=== PATIENT | female | born 1940 | race Caucasian/White ===

== ENCOUNTER 2018-01-11 12:04 | Observation (INO) ==
[2018-01-11] MEDS ORDERED: Sod Chloride 0.9% Inj 1,000 ML IV.SIG ONE (12:29)
--- NOTE | 2018-01-11 12:40 | ED ---
HPI General Chief complaint: Weakness Stated complaint: Weakness/vomiting/SOB this am Time Seen by Provider: 01/11/18 12:29 History of Present Illness HPI narrative: Patient is a 77-year-old female presents emergency department with nausea and vomiting nonbilious nonbloody started this morning. Patient states that she thinks she has food poisoning. No chest pain no shortness of breath no abdominal pain no diarrhea. She did states she had some constipation a few days ago. Notably tachycardic in triage she was roomed in the emergency department. No history of heart or lung disease no history of long periods of stasis no history of blood clots in the past. No other sick contacts. Symptoms mild, started this morning, associated signs and symptoms in context as above. Related Data Home Medications Medication Instructions Recorded Confirmed glyburide PO DAILY 01/11/18 levothyroxine [Synthroid] 88 mcg PO DAILY 01/11/18 01/11/18 metformin 500 mg PO DAILY 01/11/18 01/11/18 Allergies Allergy/AdvReac Type Severity Reaction Status Date / Time No Known Allergies Allergy Verified 01/11/18 12:15 Review of Systems Except as stated in HPI: all other systems reviewed are negative [facility] Medical History Medical History Diabetes (Acute) Hypertension (Acute) Hypothyroidism (Acute) Surgical History Surgical History No history of previous surgery (Acute) Social History Social History Substance History: No History of Abuse Second Hand Smoke Exposure: No Smoking Status: Former smoker Tobacco Type: Cigarettes How Often Do You Have a Drink Containing Alcohol: Never Recent Travel in [facility] within the Last 8 Weeks: No Recent Out of Country Travel within the Last 8 Weeks: No Exam Narrative Exam Narrative: GENERAL: Well-developed well-nourished in no obvious distress, appears well. SKIN: Focused skin assessment warm/dry. HEAD: Atraumatic. Normocephalic. EYES: Pupils equal and round. No scleral icterus. No injection or drainage. ENT: No nasal bleeding or discharge. Mucous membranes pink and moist. NECK: Trachea midline. No JVD. CARDIOVASCULAR: Regular rhythm with tachycardia 2+ bilateral pulses in all 4 extremities per. No murmur appreciated. RESPIRATORY: No accessory muscle use. No wheezes rales or rhonchi, good air entry, clear to auscultation. Perhaps minimally tachypneic. Breath sounds equal bilaterally. GASTROINTESTINAL: Abdomen soft, non-tender, nondistended. Hepatic and splenic margins not palpable. MUSCULOSKELETAL: No obvious deformities. No clubbing. No cyanosis. No edema. NEUROLOGICAL: Awake and alert. No obvious cranial nerve deficits. Motor grossly within normal limits. Normal speech. PSYCHIATRIC: Appropriate mood and affect; insight and judgment normal. Course Initial Documented Vital Signs Temperature 98.4 F 01/11/18 12:16 Pulse Rate 140 H 01/11/18 12:16 Respiratory Rate 16 01/11/18 12:16 Blood Pressure 116/66 01/11/18 12:16 Pulse Oximetry 94 L 01/11/18 12:16 Last Documented Vital Signs Temperature 98.4 F 01/11/18 12:16 Pulse Rate 110 H 01/11/18 14:26 Respiratory Rate 20 01/11/18 12:25 Blood Pressure 117/52 L 01/11/18 14:26 Pulse Oximetry 92 L 01/11/18 14:26 Medical Decision Making MDM Narrative Medical decision making narrative: Patient room to the emergency department, she appears well and her history would suggest that the dehydration may be the cause of her tachycardia but would not explain her hypoxia. Patient having desaturations to the mid 80s on room air, she was placed on nasal cannula continues to have some desaturations to the mid 80s but otherwise is holding her saturation above 94%. ABG confirms the patient's PaO2 was a little low at 70 and this was obtained on 2 L nasal cannula. This could represent an AA gradient of Near 100, PaO2 to FiO2 ratio is approximately 250. Certainly PE would lead the differential the patient does not report any historical risk factors for it she went for CT PE protocol and did not show any pneumonias, small lung nodule but no PE. There were no heart murmurs. Patient is not in overt congestive heart failure. She does have a significant bandemia but no source of infection is yet been identified., Where the patient also has a history of hypothyroidism is on hypothyroid replacement and thyroid panel was added. Urinalysis was also added. Patient has not been febrile and therefore I cannot justify the addition of antibiotics at this point but may require them in the near future. Despite these laboratory abnormalities the patient appears well. She was given a liter of normal saline given the history suggestive of some dehydration and heart rate did decline some to mid 110's. Certainly I think the patient needs additional workup was discussed with [facility] team and I recommended admission consideration for echocardiogram and pulmonary consult. They are agreeable for admission and so is the patient. Differential Diagnosis Differential Diagnosis: Gastritis, gastroenteritis, dehydration, Sirs, PE, pneumonia Lab Data Result diagrams: 01/11/18 12:40 01/11/18 13:00 Lab Results 01/11/18 01/11/18 01/11/18 Range/Units 12:25 12:40 12:40 CBC w Diff Slide review pending WBC 5.4 (4.0-11.0) th/mm3 RBC 5.16 (4.00-5.30) mil/mm3 Hgb 15.7 H (11.6-15.3) gm/dL Hct 44.5 (35.0-46.0) % MCV 86.2 (80.0-100.0) fL MCH 30.4 (27.0-34.0) pg MCHC 35.3 (32.0-36.0) % RDW 13.3 (11.6-17.2) % Plt Count 210 (150-450) th/mm3 MPV 7.5 (7.0-11.0) fL WBC Differential Manual diff final Seg Neuts % (Manual) 59 (16-70) % Band Neuts % (Manual) 30 H (0-6) % Lymphocytes % (Manual) 5 L (9-44) % Eosinophils % (Manual) 4 (0-4) % Metamyelocytes % (Man) 1 (0-1) % Myelocytes % (Man) 1 H (0-0) % Abs Neuts (Manual) 4.9 (1.8-7.7) th/mm3 Differential Comment . Toxic Granulation 2+ H (None) Platelet Estimate Normal (Normal) Platelet Morphology Normal (Normal) PT 10.2 (9.8-11.6) sec INR 1.0 Ratio APTT 21.0 L (24.3-30.1) sec Puncture Site Patient Temperature O2 Saturation (90-100) % ABG pH (7.380-7.420) ABG pCO2 (38-42) mmHg ABG pO2 (61-120) mmHg ABG HCO3 (22-26) mmol/L ABG O2 Content (12.0-20.0) Vol % ABG Base Excess (-2-2) mmol/L ABG Methemoglobin (0-2) % Kip Test Hemoglobin (12.0-16.0) G/DL Carboxyhemoglobin (0-4) % O2 Delivery Device Liter Flow L/M Inspired O2 % Critical Value Sodium (136-145) meq/L Potassium (3.5-5.1) meq/L Chloride (98-107) meq/L Carbon Dioxide (21.0-32.0) meq/L Anion Gap (5-15) meq/L BUN (7-18) mg/dL Creatinine (0.50-1.00) mg/dL Estimated GFR (>89) mL/min POC Glucose 145 H (68-110) mg/dl Random Glucose (74-106) mg/dL Calcium (8.5-10.1) mg/dL Total Bilirubin (0.2-1.0) mg/dL AST (15-37) U/L ALT (10-53) U/L Alkaline Phosphatase (45-117) U/L Troponin I (0.02-0.05) ng/mL Total Protein (6.4-8.2) g/dL Albumin (3.4-5.0) g/dL 01/11/18 01/11/18 Range/Units 13:00 13:23 CBC w Diff WBC (4.0-11.0) th/mm3 RBC (4.00-5.30) mil/mm3 Hgb (11.6-15.3) gm/dL Hct (35.0-46.0) % MCV (80.0-100.0) fL MCH (27.0-34.0) pg MCHC (32.0-36.0) % RDW (11.6-17.2) % Plt Count (150-450) th/mm3 MPV (7.0-11.0) fL WBC Differential Seg Neuts % (Manual) (16-70) % Band Neuts % (Manual) (0-6) % Lymphocytes % (Manual) (9-44) % Eosinophils % (Manual) (0-4) % Metamyelocytes % (Man) (0-1) % Myelocytes % (Man) (0-0) % Abs Neuts (Manual) (1.8-7.7) th/mm3 Differential Comment Toxic Granulation (None) Platelet Estimate (Normal) Platelet Morphology (Normal) PT (9.8-11.6) sec INR Ratio APTT (24.3-30.1) sec Puncture Site Left radial Patient Temperature 98.6 O2 Saturation 92 (90-100) % ABG pH 7.45 H (7.380-7.420) ABG pCO2 29 L (38-42) mmHg ABG pO2 70 (61-120) mmHg ABG HCO3 20 L (22-26) mmol/L ABG O2 Content 18.6 (12.0-20.0) Vol % ABG Base Excess -3.6 L (-2-2) mmol/L ABG Methemoglobin 1.3 (0-2) % Kip Test Present Hemoglobin 14.3 (12.0-16.0) G/DL Carboxyhemoglobin 1.4 (0-4) % O2 Delivery Device Nasal cannula Liter Flow 2.00 L/M Inspired O2 21 % Critical Value No Sodium 138 (136-145) meq/L Potassium 3.5 (3.5-5.1) meq/L Chloride 106 (98-107) meq/L Carbon Dioxide 22.7 (21.0-32.0) meq/L Anion Gap 9 (5-15) meq/L BUN 16 (7-18) mg/dL Creatinine 1.10 H (0.50-1.00) mg/dL Estimated GFR 48 L (>89) mL/min POC Glucose (68-110) mg/dl Random Glucose 129 H (74-106) mg/dL Calcium 8.4 L (8.5-10.1) mg/dL Total Bilirubin 0.7 (0.2-1.0) mg/dL AST 38 H (15-37) U/L ALT 43 (10-53) U/L Alkaline Phosphatase 137 H (45-117) U/L Troponin I Less than 0.02 L (0.02-0.05) ng/mL Total Protein 6.9 (6.4-8.2) g/dL Albumin 3.7 (3.4-5.0) g/dL Imaging Data Radiologist's impression: Chest X-Ray 01/11/18 12:29 CONCLUSION: Mild infrahilar right medial base atelectasis or consolidation. Chest CTA 01/11/18 13:12 CONCLUSION: 1. No evidence of pulmonary embolus. 2. 7 mm pulmonary nodular density abutting the major fissure on the right. May represent an intrapulmonary lymph node. Using Fleischner Society guidelines, recommend follow-up noncontrast CT in 6 months. Discharge Plan Discharge Disposition Patient Disposition: 30 Still Patient Discharge Condition Condition: Fair Discharge Details Diagnosis: Respiratory failure, SIRS (systemic inflammatory response syndrome), Bandemia Physicians Team ED Provider: Francisco Adams Primary Care Provider: Brayan Marrufo V Rxs /Orders / Referrals /Forms Prescriptions: No Action metformin 500 mg Tablet 500 mg PO DAILY RF: 0 levothyroxine [Synthroid] 88 mcg Tablet 88 mcg PO DAILY RF: 0 glyburide PO DAILY RF: 0 Status ED Status: With Doctor
[2018-01-11 12:50] LABS: Hematocrit 44.5 % (35.0-46.0); Hemoglobin 15.7 gm/dL (11.6-15.3); Mean Corpuscular HGB Conc 35.3 % (32.0-36.0); Mean Corpuscular Hemoglobin 30.4 pg (27.0-34.0); Mean Corpuscular Volume 86.2 fL (80.0-100.0); Mean Platelet Volume 7.5 fL (7.0-11.0); Platelet Count 210 th/mm3 (150-450); Red Blood Count 5.16 mil/mm3 (4.00-5.30); Red Cell Distribution Width 13.3 % (11.6-17.2); White Blood Count 5.4 th/mm3 (4.0-11.0)
--- NOTE | 2018-01-11 12:59 | XR ---
EXAM DATE: 01/11/2018 12:47 PM EDT AGE/SEX: 77 years / Female INDICATIONS: Short of breath CLINICAL DATA: This is the patient's initial encounter. Patient reports that signs and symptoms have been present for 1 day and indicates a pain score of 3/10. MEDICAL/SURGICAL HISTORY: None. None. COMPARISON: No prior exams available for comparison. FINDINGS: There is mild increased density at the medial right base. The left lung is clear. The heart size is n ormal. CONCLUSION: Mild infrahilar right medial base atelectasis or consolidation. Electronically signed by: Ryan Giraldo MD 01/11/2018 12:58 PM EDT
[2018-01-11 13:05] LABS: Prothrombin Time 10.2 sec (9.8-11.6)
[2018-01-11 13:13] LABS: Eosinophils 4 % (0-4); Lymphocytes 5 % (9-44); Metamyelocytes 1 % (0-1); Myelocytes 1 % (0-0)
[2018-01-11 13:14] LABS: Platelet Estimate Normal (Normal); Platelet Morphology Normal (Normal); Toxic Granulation 2+
[2018-01-11 13:21] LABS: Chloride 106 meq/L (98-107); Potassium 3.5 meq/L (3.5-5.1); Sodium 138 meq/L (136-145)
[2018-01-11 13:24] LABS: Calcium 8.4 mg/dL (8.5-10.1)
[2018-01-11 13:25] LABS: Albumin 3.7 g/dL (3.4-5.0); Anion Gap 9 meq/L (5-15); Blood Urea Nitrogen 16 mg/dL (7-18); Carbon Dioxide 22.7 meq/L (21.0-32.0); Glucose,Random 129 mg/dL (74-106)
[2018-01-11 13:25] LABS: ABG Base Excess -3.6 mmol/L (-2-2); ABG PCO2 29 mmHg (38-42); ABG PO2 70 mmHg (61-120)
[2018-01-11 13:28] LABS: Alanine Aminotransferase 43 U/L (10-53); Aspartate Aminotransferase 38 U/L (15-37); Glomerular Filtration Rate 48 mL/min (>89)
[2018-01-11 13:29] LABS: Total Protein 6.9 g/dL (6.4-8.2)
[2018-01-11 13:31] LABS: Alkaline Phosphatase 137 U/L (45-117)
--- NOTE | 2018-01-11 14:15 | CT ---
EXAM DATE: 01/11/2018 2:01 PM EDT AGE/SEX: 77 years / Female INDICATIONS: Short of breath. Weakness. Tachycardic. Nausea and vomiting. CLINICAL DATA: This is the patient's initial encounter. Patient reports that signs and symptoms have been present for 1 day and indicates a pain score of 0/10. MEDICAL/SURGICAL HISTORY: Hypertension. None. RADIATION DOSE: 17.92 CTDI (mGy) COMPARISON: No prior exams available for comparison. TECHNIQUE: Volumetric scanning was performed using a multi-row detector CT scanner during bolus infu tyler of 75 ml Omnipaque 350 (iohexol) nonionic water-soluble contrast as a single exam dose. The dipesh a was post processed with a variety of visualization algorithms including full volume maximum intensi ty projection and sliding thin slab reformation. Using automated exposure control and adjustment of the mA and/or kV according to patient size, radiation dose was kept as low as reasonably achievable t o obtain optimal diagnostic quality images. DICOM format image data is available electronically for review and comparison. FINDINGS: Pulmonary Arteries: No filling defects are seen in the pulmonary arteries out to the subsegmental ve ssels. The left and right pulmonary arteries are normal in diameter. Lun mm pulmonary round nodular density in the right lower lobe along the major fissure on image #41. Mild bilateral dependent atelectasis. Effusion: None. Mediastinum: Diffuse aortic calcification. Aortic diameter within normal limits. No enlarged mediast inal lymph nodes. Coronary artery calcification is noted. Other: The axilla is unremarkable. CONCLUSION: 1. No evidence of pulmonary embolus. 2. 7 mm pulmonary nodular density abutting the major fissure on the right. May represent an intrapul monary lymph node. Using Fleischner Society guidelines, recommend follow-up noncontrast CT in 6 month s. Electronically signed by: Nomi Hitchcock MD 01/11/2018 2:14 PM EDT
[2018-01-11] MEDS ORDERED: Acetaminophen 325 MG Tablet PO PRN (14:39)
[2018-01-11] MEDS ORDERED: Temazepam 15 MG Capsule PO PRN (14:39)
[2018-01-11] MEDS ORDERED: Bisacodyl 10 MG Supp RECTAL PRN (14:39)
[2018-01-11] MEDS ORDERED: Dextrose 50% in Water 50 ML Vial IV.PUSH PRN (14:44)
[2018-01-11 14:53] LABS: Bilirubin,Urine Negative (Negative); Clarity,Urine Clear (Clear); Color,Urine Yellow (Yellw/Straw); Glucose,Urine (UA) Negative (Negative); Leukocyte Esterase,Urine Negative (Negative); Nitrite,Urine Negative (Negative); PH,Urine 5.5 (5.0-8.5); Specific Gravity,Urine Less/Equal 1.005 (1.002-1.035); Urobilinogen,Urine 0.2 mg/dL (Less than 2)
[2018-01-11 14:59] LABS: Bacteria,Urine Occasional /hpf; RBC,Urine 0-3 /hpf (0-3); Squamous Epithelial Cell,Urine 0-5 /hpf (0-5); WBC,Urine 0-5 /hpf (0-5)
[2018-01-11 15:09] LABS: Thyroid Stimulating Hormone 2.81 uIU/mL (0.358-3.740)
[2018-01-11] MEDS: Sod Chloride 0.9% Inj 1,000 ML IV.CONT SCH (15:11)
--- NOTE | 2018-01-11 15:12 | P.HPIM ---
[facility]: Brayan Marrufo MD Chief Complaint: Nausea, vomiting, shortness of breath History of Present Illness: 77-year-old female with medical history significant for hypothyroidism and diabetes presented to the hospital with nausea nonbilious vomiting that started this morning. Workup in the emergency room found the patient to be tachycardic in the 140s and hypoxemic. There is no history of cardiopulmonary disease. CTA of the chest was negative for pulmonary embolism. The patient was given IV fluid. By the time of my evaluation, she reports feeling much better. However she remains tachycardic and is still requiring 2 L of oxygen on nasal cannula. - Diagnosis (1) Hypoxemia (2) Elevated lactic acid level (3) Bandemia (4) Nausea & vomiting (5) Hypothyroidism (6) Sinus tachycardia (7) Diabetes Review of Systems All other systems reviewed negative except as stated in HPI Cardiovascular: Denies chest pain, Denies chest pain at rest Gastrointestinal: Reports nausea, Reports vomiting PMFSH - History History Provided By: Patient - Medical History Medical History: Medical History (Last Reviewed 01/11/18 @ 15:36 by Owen Rivers MD) Diabetes Hypertension Hypothyroidism - Surgical History Surgical History: Surgical History (Last Reviewed 01/11/18 @ 15:36 by Owen Rivers MD) No history of previous surgery - Family History Family History: Family History (Last Updated 01/11/18 @ 15:36 by Owen Rivers MD) Other Family history non-contributory - Tobacco History Second Hand Smoke Exposure: No Tobacco Use In Past 30 Days: No Smoking Status: Former smoker Tobacco Type: Cigarettes - Alcohol History How Often Do You Have a Drink Containing Alcohol: Never - Substance Use History Substance History: No History of Abuse - Travel History Recent Travel in the [place] Within the Last 8 Weeks: No Recent Travel Out of the Country Within the Last 8 Weeks: No - Immunization History Tetanus Immunization: Unsure Medications and Allergies Active Medications: Active Medications Acetaminophen (Tylenol) 650 mg PO Q4H PRN PRN Reason: Temp > 100.4 Al Hydroxide/Mg Hydroxide (Milk Of Magnesia Liq) 30 ml PO Q12H PRN PRN Reason: Mild Constipation Bisacodyl (Dulcolax Supp) 10 mg RECTAL DAILY PRN PRN Reason: SEVERE CONSITIPATION Dextrose (D50w Vial) 50 ml IV.PUSH UNSCH PRN PRN Reason: PER HYPOGLYCEMIA PROTOCOL Glucagon (Glucagon Inj) 1 mg OTHER PRN PRN PRN Reason: for Hypoglycemia Protocol Sodium Chloride (Ns Inj) 1,000 mls @ 100 mls/hr IV.CONT .Q10H [place] Last Admin: 01/11/18 15:11 Dose: 100 mls/hr Insulin Aspart (Novolog Insulin Correctional Sugar Inj) 0 unit SQ ACHS [place]; Protocol Lactulose (Lactulose Liq) 30 ml PO DAILY PRN PRN Reason: SEVERE CONSITIPATION Levothyroxine Sodium (Synthroid) 88 mcg PO DAILY@0600 [place] Ondansetron HCl (Zofran Inj) 4 mg IV.PUSH Q6H PRN PRN Reason: NAUSEA OR VOMITING Senna/Docusate Sodium (Ruby-Colace) 1 tab PO BID [facility] Sennosides (Senokot) 17.2 mg PO Q12H PRN PRN Reason: Moderate Constipation Sodium Chloride (Ns Flush) 2 ml IV.FLUSH UNSCH PRN PRN Reason: FLUSH AFTER USING IV ACCESS Temazepam (Restoril) 15 mg PO HS PRN PRN Reason: INSOMNIA Allergies Allergy/AdvReac Type Severity Reaction Status Date / Time No Known Allergies Allergy Verified 01/11/18 12:15 Home Medications Medication Instructions Recorded Confirmed Type glyburide PO DAILY 01/11/18 History levothyroxine [Synthroid] 88 mcg PO DAILY 01/11/18 01/11/18 History metformin 500 mg PO DAILY 01/11/18 01/11/18 History Exam Vital signs: Vital Signs 01/11/18 12:16 01/11/18 12:25 01/11/18 12:35 Temperature 98.4 F Pulse Rate 140 H 144 H Respiratory Rate 16 20 Blood Pressure 116/66 137/66 Pulse Oximetry 94 L 88 L 88 L 01/11/18 12:51 01/11/18 12:53 01/11/18 14:26 Temperature Pulse Rate 133 H 110 H Respiratory Rate Blood Pressure 103/57 L 117/52 L Pulse Oximetry 92 L 88 L 92 L Intake & Output 01/10/18 01/11/18 01/11/18 18:59 06:59 18:59 Weight 73.6 kg Narrative: CONSTITUTIONAL/GENERAL: This is an adequately nourished patient, in no apparent distress. Vital signs reviewed SKIN: No jaundice, rashes, or concerning lesions. Not diaphoretic. HEAD: Atraumatic. Normocephalic. EYES: Pupils equal and round and reactive. Extra ocular motions are intact. No scleral icterus. No injection or drainage. ENT: Hearing grossly normal. Nose without drainage. Throat without visible erythema, exudates, masses, or lesions. NECK: Trachea midline. Neck is supple, non-tender. No palpable thyroid enlargement or nodularity. CARDIOVASCULAR: Tachycardic rate around 110 and regular rhythm without murmurs, gallops, or rubs. No JVD. Peripheral pulses 2+ and symmetric. RESPIRATORY/CHEST: Symmetric, unlabored respirations. Breath sounds equal and clear to auscultation bilaterally. No wheezes, crackles, rales, or rhonchi. GASTROINTESTINAL: Abdomen soft, non-tender, non-distended. No hepato- splenomegaly, or palpable masses. No guarding. Bowel sounds present. MUSCULOSKELETAL: Extremities without clubbing, cyanosis, or edema. No joint tenderness or effusion noted. No calf tenderness. No mottling or clubbing. NEUROLOGICAL: Awake and alert. Motor and sensory grossly within normal limits. Follows commands. Move all extremities spontaneously. No focal deficits. PSYCHIATRIC: No obvious mood problems. No apparent hallucinations or other psychotic thought process. Results - Labs CBC & Chem 7: 01/11/18 12:40 01/11/18 13:00 Labs: Short CBC 01/11/18 Range/Units 12:40 WBC 5.4 (4.0-11.0) th/mm3 Hgb 15.7 H (11.6-15.3) gm/dL Hct 44.5 (35.0-46.0) % Plt Count 210 (150-450) th/mm3 BMP 01/11/18 13:00 Sodium 138 Potassium 3.5 Chloride 106 Carbon Dioxide 22.7 BUN 16 Creatinine 1.10 H Calcium 8.4 L Cardiac Enzymes 01/11/18 Range/Units 13:00 Troponin I Less than 0.02 L (0.02-0.05) ng/mL Liver Function 01/11/18 Range/Units 13:00 Total Bilirubin 0.7 (0.2-1.0) mg/dL AST 38 H (15-37) U/L ALT 43 (10-53) U/L Alkaline Phosphatase 137 H (45-117) U/L Albumin 3.7 (3.4-5.0) g/dL Urine 01/11/18 Range/Units 14:45 Urine Color Yellow (Yellw/Straw) Urine Clarity Clear (Clear) Urine pH 5.5 (5.0-8.5) Ur Specific [place] Less/equal 1.005 (1.002-1.035) Urine Protein Negative (Neg-Trace) mg/dL Urine Glucose (UA) Negative (Negative) mg/dL - Imaging Impressions Chest X-Ray 01/11/18 12:29 CONCLUSION: Mild infrahilar right medial base atelectasis or consolidation. Chest CTA 01/11/18 13:12 CONCLUSION: 1. No evidence of pulmonary embolus. 2. 7 mm pulmonary nodular density abutting the major fissure on the right. May represent an intrapulmonary lymph node. Using Fleischner Society guidelines, recommend follow-up noncontrast CT in 6 months. Caprini VTE Risk Assessment Caprini VTE Risk Assessment: Moderate/High Risk (score >= 2) Caprini Risk Assessment Model: Point Value = 1 Point Value = 2 Point Value = 3 Point Value = 5 Age 41-60 Minor surgery BMI > 25 kg/m2 Swollen legs Varicose veins or History of unexplained or recurrent spontaneous Oral contraceptives or hormone replacement Sepsis (< 1 month) Serious lung disease, including pneumonia (< 1 month) Abnormal pulmonary function Acute myocardial infarction Congestive heart failure (< 1 month) History of inflammatory bowel disease Medical patient at bed rest Age 61-74 Arthroscopic surgery Major open surgery (> 45 min) Laparoscopic surgery (> 45 min) Malignancy Confined to bed (> 72 hours) Immobilizing plaster cast Central venous access Age >= 75 History of VTE Family history of VTE Factor V Leiden Prothrombin [id number] Lupus anticoagulant Anticardiolipin antibodies Elevated serum homocysteine Heparin-induced thrombocytopenia Other congenital or acquired thrombophilia Stroke (< 1 month) Elective arthroplasty Hip, pelvis, or leg fracture Acute spinal cord injury (< 1 month) Prophylaxis Regimen: Total Risk Factor Score Risk Level Prophylaxis Regimen 0-1 Low Early ambulation 2 Moderate Order ONE of the following: *Sequential Compression Device (SCD) *Heparin 5000 units SQ BID 3-4 Higher Order ONE of the following medications: *Heparin 5000 units SQ TID *Enoxaparin/Lovenox 40 mg SQ daily (WT < 150 kg, CrCl > 30 mL/min) *Enoxaparin/Lovenox 30 mg SQ daily (WT < 150 kg, CrCl > 10-29 mL/min) *Enoxaparin/Lovenox 30 mg SQ BID (WT < 150 kg, CrCl > 30 mL/min) AND/OR *Sequential Compression Device (SCD) 5 or more Highest Order ONE of the following medications: *Heparin 5000 units SQ TID (Preferred with Epidurals) *Enoxaparin/Lovenox 40 mg SQ daily (WT < 150 kg, CrCl > 30 mL/min) *Enoxaparin/Lovenox 30 mg SQ daily (WT < 150 kg, CrCl > 10-29 mL/min) *Enoxaparin/Lovenox 30 mg SQ BID (WT < 150 kg, CrCl > 30 mL/min) AND *Sequential Compression Device (SCD) Assessment and Plan - Assessment (1) Hypoxemia Code(s): R09.02 - Hypoxemia Status: Acute Plan: Etiology unclear. Likely secondary to tachycardia. Expect improvement in his tachycardia improved. Continue supplemental oxygen. CT of the chest does not reveal any acute findings. There is a 7 mm nodule, 6 months follow-up is advised. (2) Elevated lactic acid level Code(s): R79.89 - Other specified abnormal findings of blood chemistry Status : Acute Plan: Probably secondary to nausea and vomiting. No evidence of sepsis at this point. (3) Bandemia Code(s): D72.825 - Bandemia Status: Acute (4) Nausea & vomiting Code(s): R11.2 - Nausea with vomiting, unspecified Status: Acute Plan: Patient report her symptoms started after breakfast this morning. Clinically improving. Likely viral gastroenteritis. (5) Hypothyroidism Code(s): E03.9 - Hypothyroidism, unspecified Status: Acute Plan: TSH normal. Follow-up free T4 (6) Sinus tachycardia Code(s): R00.0 - Tachycardia, unspecified Status: Acute Plan: Likely secondary to dehydration from GI loss. Continue IV fluid. Improving. Monitor on telemetry. (7) Diabetes Code(s): E11.9 - Type 2 diabetes mellitus without complications Status: Acute Plan: Hold oral diabetes medication. Sliding scale insulin with Accu-Cheks.
[2018-01-11] MEDS ORDERED: Metoprolol Tartrate 25 MG Tablet PO ONE (16:00)
[2018-01-11 17:18] LABS: Free T4 (Free Thyroxine) 1.27 ng/dL (0.76-1.46); Triiodothyronine (T3) Free 2.96 pg/mL (2.18-3.98)
[2018-01-11] MEDS: Insulin NovoLOG Aspart Correctional Sugar Inj SQ SCH ×2 (17:43→20:29)
[2018-01-11 19:51] LABS: Creatine Kinase 282 U/L (26-192)
[2018-01-11 20:03] LABS: CKMB Percent 0.4 % (0.0-4.0); Creatine Kinase MB 1.2 ng/mL (0.5-3.6)
[2018-01-11] MEDS: Senna/Docusate Sodium 8.6/50 MG Tablet PO SCH (20:27)
[2018-01-12] MEDS: Sod Chloride 0.9% Inj 1,000 ML IV.CONT SCH (01:23)
[2018-01-12] MEDS ORDERED: Levothyroxine 88 MCG Tablet PO SCH (06:00)
[2018-01-12] MEDS: Insulin NovoLOG Aspart Correctional Sugar Inj SQ SCH (08:09)
[2018-01-12] MEDS: Senna/Docusate Sodium 8.6/50 MG Tablet PO SCH (08:11)
[2018-01-12 08:20] LABS: Baso % (Auto) 0.3 % (0.0-2.0); Eos # (Auto) 0.4 th/mm3 (0.0-0.4); Eos % (Auto) 5.1 % (0.0-4.0); Hematocrit 35.9 % (35.0-46.0); Hemoglobin 12.8 gm/dL (11.6-15.3); Lymph # (Auto) 1.9 th/mm3 (1.0-4.8); Lymph % (Auto) 22.7 % (9.0-44.0); Mean Corpuscular HGB Conc 35.6 % (32.0-36.0); Mean Corpuscular Hemoglobin 31.1 pg (27.0-34.0); Mean Corpuscular Volume 87.2 fL (80.0-100.0); Mean Platelet Volume 8.3 fL (7.0-11.0); Mono # (Auto) 0.5 th/mm3 (0.0-0.9); Mono % (Auto) 6.3 % (0.0-8.0); Neut # (Auto) 5.7 th/mm3 (1.8-7.7); Neut % (Auto) 65.6 % (16.0-70.0); Platelet Count 198 th/mm3 (150-450); Red Blood Count 4.11 mil/mm3 (4.00-5.30); Red Cell Distribution Width 13.4 % (11.6-17.2); White Blood Count 8.5 th/mm3 (4.0-11.0)
[2018-01-12 08:38] LABS: Chloride 112 meq/L (98-107); Potassium 3.7 meq/L (3.5-5.1); Sodium 144 meq/L (136-145)
[2018-01-12 08:42] LABS: Calcium 7.7 mg/dL (8.5-10.1)
--- NOTE | 2018-01-12 08:44 | P.PNIM ---
Subjective Interval history: Patient reports she is feeling back to normal. No nausea or vomiting. She tolerated her diet. Physical Exam Vital signs: Vital Signs 01/11/18 12:16 01/11/18 12:25 01/11/18 12:35 Temperature 98.4 F Pulse Rate 140 H 144 H Respiratory Rate 16 20 Blood Pressure 116/66 137/66 Pulse Oximetry 94 L 88 L 88 L 01/11/18 12:51 01/11/18 12:53 01/11/18 14:26 Temperature Pulse Rate 133 H 110 H Respiratory Rate Blood Pressure 103/57 L 117/52 L Pulse Oximetry 92 L 88 L 92 L 01/11/18 15:52 01/11/18 16:57 01/11/18 19:45 Temperature 98.8 F Pulse Rate 117 H 109 H Respiratory Rate 16 Blood Pressure 114/59 L 114/58 L Pulse Oximetry 92 L 95 94 L 01/11/18 20:00 01/12/18 00:00 01/12/18 07:27 Temperature 97.9 F 98.7 F 98.1 F Pulse Rate 81 70 72 Respiratory Rate 16 16 20 Blood Pressure 99/57 L 106/57 L 128/64 Pulse Oximetry 94 L 98 96 Intake & Output 01/11/18 01/12/18 01/12/18 18:59 06:59 18:59 Intake Total 1220 / 1220 1000 / 1000 Balance 1220 / 1220 1000 / 1000 Weight 74.5 kg Intake: IV 1000 / 1000 1000 / 1000 NS Inj 1,000 ML @ 100 mls/hr IV 1000 / 1000 .CONT .Q10H [place] Rx#:[id number] NS Inj 1,000 ML @ Wide Open IV. 1000 / 1000 SIG BOLUS ONE Rx#:[id number] Oral 220 / 220 Other: # Voids 0 3 # Bowel Movements 0 Weight On Admission 74.5 kg Narrative: GENERAL: This is a well-nourished, well-developed patient, in no apparent distress. CARDIOVASCULAR: Normal rate and regular rhythm without murmurs, gallops, or rubs. RESPIRATORY: Good respiratory efforts. Breath sounds equal and clear to auscultation bilaterally. GASTROINTESTINAL: Abdomen soft, non-tender, non-distended. Normal active bowel sounds MUSCULOSKELETAL: Extremities without cyanosis, or edema. NEURO: Alert & Oriented x4 to person, place, time, situation. Moves all ext x4 PSYCH: Appropriate mood and affect. Results - Labs CBC & Chem 7: 01/12/18 07:06 01/12/18 07:06 Laboratory Results - last 24 hr 01/11/18 01/11/18 01/11/18 12:25 12:40 12:40 CBC w Diff Slide review pending WBC 5.4 RBC 5.16 Hgb 15.7 H Hct 44.5 MCV 86.2 MCH 30.4 MCHC 35.3 RDW 13.3 Plt Count 210 MPV 7.5 Neut % (Auto) Lymph % (Auto) [place] % (Auto) Eos % (Auto) Baso % (Auto) Neut # (Auto) Lymph # (Auto) [place] # (Auto) Eos # (Auto) Baso # (Auto) WBC Differential Manual diff final Seg Neuts % (Manual) 59 Band Neuts % (Manual) 30 H Lymphocytes % (Manual) 5 L Eosinophils % (Manual) 4 Metamyelocytes % (Man) 1 Myelocytes % (Man) 1 H Abs Neuts (Manual) 4.9 Differential Comment . Toxic Granulation 2+ H Platelet Estimate Normal Platelet Morphology Normal PT 10.2 INR 1.0 APTT 21.0 L Puncture Site Patient Temperature O2 Saturation ABG pH ABG pCO2 ABG pO2 ABG HCO3 ABG O2 Content ABG Base Excess ABG Methemoglobin Kip Test Hemoglobin Carboxyhemoglobin O2 Delivery Device Liter Flow Inspired O2 Critical Value Sodium Potassium Chloride Carbon Dioxide Anion Gap BUN Creatinine Estimated GFR POC Glucose 145 H Random Glucose Lactic Acid Calcium Total Bilirubin AST ALT Alkaline Phosphatase Total Creatine Kinase CK-MB (CK-2) CK-MB (CK-2) % Troponin I Total Protein Albumin TSH Free T4 Free T3 Urine Color Urine Clarity Urine pH Ur Specific Simpson Urine Protein Urine Glucose (UA) Urine Ketones Urine Occult Blood Urine Nitrate Urine Bilirubin Urine Urobilinogen Ur Leukocyte Esterase Urine RBC Urine WBC Ur Squamous Epith Cells Urine Bacteria Micro UA Comment Urine Culture Comments 01/11/18 01/11/18 01/11/18 13:00 13:00 13:23 CBC w Diff WBC RBC Hgb Hct MCV MCH MCHC RDW Plt Count MPV Neut % (Auto) Lymph % (Auto) [place] % (Auto) Eos % (Auto) Baso % (Auto) Neut # (Auto) Lymph # (Auto) [place] # (Auto) Eos # (Auto) Baso # (Auto) WBC Differential Seg Neuts % (Manual) Band Neuts % (Manual) Lymphocytes % (Manual) Eosinophils % (Manual) Metamyelocytes % (Man) Myelocytes % (Man) Abs Neuts (Manual) Differential Comment Toxic Granulation Platelet Estimate Platelet Morphology PT INR APTT Puncture Site Left radial Patient Temperature 98.6 O2 Saturation 92 ABG pH 7.45 H ABG pCO2 29 L ABG pO2 70 ABG HCO3 20 L ABG O2 Content 18.6 ABG Base Excess -3.6 L ABG Methemoglobin 1.3 Kip Test Present Hemoglobin 14.3 Carboxyhemoglobin 1.4 O2 Delivery Device Nasal cannula Liter Flow 2.00 Inspired O2 21 Critical Value No Sodium 138 Potassium 3.5 Chloride 106 Carbon Dioxide 22.7 Anion Gap 9 BUN 16 Creatinine 1.10 H Estimated GFR 48 L POC Glucose Random Glucose 129 H Lactic Acid Calcium 8.4 L Total Bilirubin 0.7 AST 38 H ALT 43 Alkaline Phosphatase 137 H Total Creatine Kinase CK-MB (CK-2) CK-MB (CK-2) % Troponin I Less than 0.02 L Total Protein 6.9 Albumin 3.7 TSH 2.810 Free T4 1.27 Free T3 2.96 Urine Color Urine Clarity Urine pH Ur Specific Simpson Urine Protein Urine Glucose (UA) Urine Ketones Urine Occult Blood Urine Nitrate Urine Bilirubin Urine Urobilinogen Ur Leukocyte Esterase Urine RBC Urine WBC Ur Squamous Epith Cells Urine Bacteria Micro UA Comment Urine Culture Comments 01/11/18 01/11/18 01/11/18 14:45 15:07 16:20 CBC w Diff WBC RBC Hgb Hct MCV MCH MCHC RDW Plt Count MPV Neut % (Auto) Lymph % (Auto) [place] % (Auto) Eos % (Auto) Baso % (Auto) Neut # (Auto) Lymph # (Auto) [place] # (Auto) Eos # (Auto) Baso # (Auto) WBC Differential Seg Neuts % (Manual) Band Neuts % (Manual) Lymphocytes % (Manual) Eosinophils % (Manual) Metamyelocytes % (Man) Myelocytes % (Man) Abs Neuts (Manual) Differential Comment Toxic Granulation Platelet Estimate Platelet Morphology PT INR APTT Puncture Site Patient Temperature O2 Saturation ABG pH ABG pCO2 ABG pO2 ABG HCO3 ABG O2 Content ABG Base Excess ABG Methemoglobin Kip Test Hemoglobin Carboxyhemoglobin O2 Delivery Device Liter Flow Inspired O2 Critical Value Sodium Potassium Chloride Carbon Dioxide Anion Gap BUN Creatinine Estimated GFR POC Glucose Random Glucose Lactic Acid 2.5 H Calcium Total Bilirubin AST ALT Alkaline Phosphatase Total Creatine Kinase CK-MB (CK-2) CK-MB (CK-2) % Troponin I Less than 0.02 L Total Protein Albumin TSH Free T4 Free T3 Urine Color Yellow Urine Clarity Clear Urine pH 5.5 Ur Specific Simpson Less/equal 1.005 Urine Protein Negative Urine Glucose (UA) Negative Urine Ketones Trace H Urine Occult Blood Negative Urine Nitrate Negative Urine Bilirubin Negative Urine Urobilinogen 0.2 Ur Leukocyte Esterase Negative Urine RBC 0-3 Urine WBC 0-5 Ur Squamous Epith Cells 0-5 Urine Bacteria Occasional H Micro UA Comment Culture not ind Urine Culture Comments Culture not ind 01/11/18 01/11/18 01/11/18 17:13 19:15 20:09 CBC w Diff WBC RBC Hgb Hct MCV MCH MCHC RDW Plt Count MPV Neut % (Auto) Lymph % (Auto) [place] % (Auto) Eos % (Auto) Baso % (Auto) Neut # (Auto) Lymph # (Auto) [place] # (Auto) Eos # (Auto) Baso # (Auto) WBC Differential Seg Neuts % (Manual) Band Neuts % (Manual) Lymphocytes % (Manual) Eosinophils % (Manual) Metamyelocytes % (Man) Myelocytes % (Man) Abs Neuts (Manual) Differential Comment Toxic Granulation Platelet Estimate Platelet Morphology PT INR APTT Puncture Site Patient Temperature O2 Saturation ABG pH ABG pCO2 ABG pO2 ABG HCO3 ABG O2 Content ABG Base Excess ABG Methemoglobin Kip Test Hemoglobin Carboxyhemoglobin O2 Delivery Device Liter Flow Inspired O2 Critical Value Sodium Potassium Chloride Carbon Dioxide Anion Gap BUN Creatinine Estimated GFR POC Glucose 173 H 119 H Random Glucose Lactic Acid Calcium Total Bilirubin AST ALT Alkaline Phosphatase Total Creatine Kinase 282 H CK-MB (CK-2) 1.2 CK-MB (CK-2) % 0.4 Troponin I Less than 0.02 L Total Protein Albumin TSH Free T4 Free T3 Urine Color Urine Clarity Urine pH Ur Specific Simpson Urine Protein Urine Glucose (UA) Urine Ketones Urine Occult Blood Urine Nitrate Urine Bilirubin Urine Urobilinogen Ur Leukocyte Esterase Urine RBC Urine WBC Ur Squamous Epith Cells Urine Bacteria Micro UA Comment Urine Culture Comments 01/12/18 01/12/18 01/12/18 07:06 07:06 07:14 CBC w Diff Auto diff final WBC 8.5 D RBC 4.11 Hgb 12.8 D Hct 35.9 MCV 87.2 MCH 31.1 MCHC 35.6 RDW 13.4 Plt Count 198 MPV 8.3 Neut % (Auto) 65.6 Lymph % (Auto) 22.7 [place] % (Auto) 6.3 Eos % (Auto) 5.1 H Baso % (Auto) 0.3 Neut # (Auto) 5.7 Lymph # (Auto) 1.9 [place] # (Auto) 0.5 Eos # (Auto) 0.4 Baso # (Auto) 0.0 WBC Differential . Seg Neuts % (Manual) Band Neuts % (Manual) Lymphocytes % (Manual) Eosinophils % (Manual) Metamyelocytes % (Man) Myelocytes % (Man) Abs Neuts (Manual) Differential Comment . Toxic Granulation Platelet Estimate Platelet Morphology PT INR APTT Puncture Site Patient Temperature O2 Saturation ABG pH ABG pCO2 ABG pO2 ABG HCO3 ABG O2 Content ABG Base Excess ABG Methemoglobin Kip Test Hemoglobin Carboxyhemoglobin O2 Delivery Device Liter Flow Inspired O2 Critical Value Sodium 144 Potassium 3.7 Chloride 112 H Carbon Dioxide Anion Gap BUN Creatinine Estimated GFR POC Glucose 130 H Random Glucose Lactic Acid Calcium 7.7 L Total Bilirubin AST ALT Alkaline Phosphatase Total Creatine Kinase CK-MB (CK-2) CK-MB (CK-2) % Troponin I Total Protein Albumin TSH Free T4 Free T3 Urine Color Urine Clarity Urine pH Ur Specific [place] Urine Protein Urine Glucose (UA) Urine Ketones Urine Occult Blood Urine Nitrate Urine Bilirubin Urine Urobilinogen Ur Leukocyte Esterase Urine RBC Urine WBC Ur Squamous Epith Cells Urine Bacteria Micro UA Comment Urine Culture Comments - Imaging Impressions Chest X-Ray 01/11/18 12:29 CONCLUSION: Mild infrahilar right medial base atelectasis or consolidation. Chest CTA 01/11/18 13:12 CONCLUSION: 1. No evidence of pulmonary embolus. 2. 7 mm pulmonary nodular density abutting the major fissure on the right. May represent an intrapulmonary lymph node. Using Fleischner Society guidelines, recommend follow-up noncontrast CT in 6 months. Assessment and Plan - Assessment (1) Hypoxemia Code(s): R09.02 - Hypoxemia Status: Acute Plan: Etiology unclear. Likely secondary to tachycardia. Completely resolved his tachycardia resolved. Patient went down to room air. CT of the chest does not reveal any acute findings. There is a 7 mm nodule, 6 months follow-up is advised. (2) Elevated lactic acid level Code(s): R79.89 - Other specified abnormal findings of blood chemistry Status : Acute Plan: Probably secondary to nausea and vomiting. No evidence of sepsis at this point. (3) Bandemia Code(s): D72.825 - Bandemia Status: Acute (4) Nausea & vomiting Code(s): R11.2 - Nausea with vomiting, unspecified Status: Acute Plan: Patient report her symptoms started after breakfast this morning. Symptoms completely resolved. Likely viral gastroenteritis. (5) Hypothyroidism Code(s): E03.9 - Hypothyroidism, unspecified Status: Acute Plan: TSH normal. Normal free T4 (6) Sinus tachycardia Code(s): R00.0 - Tachycardia, unspecified Status: Resolved Plan: Likely secondary to dehydration from GI loss. Patient treated with IV fluid. Sinus tachycardia resolved. (7) Diabetes Code(s): E11.9 - Type 2 diabetes mellitus without complications Status: Acute Plan: Resume home medications on discharge. - Plan 77-year-old female who presented to the hospital with acute hypoxemia, tachycardia, nausea and vomiting. It appears the patient's symptoms were due to a viral gastroenteritis. She was hydrated and her symptoms significantly improved very quickly. She is discharged home in good condition. Discharge patient to home Condition on discharge: Good Diabetic diet as tolerated [place] activity Rx written: None Follow-up with primary care physician
[2018-01-12 08:51] LABS: Alanine Aminotransferase 39 U/L (10-53); Alkaline Phosphatase 91 U/L (45-117); Anion Gap 7 meq/L (5-15); Aspartate Aminotransferase 32 U/L (15-37); Blood Urea Nitrogen 13 mg/dL (7-18); Glomerular Filtration Rate 48 mL/min (>89); Glucose,Random 117 mg/dL (74-106); Total Protein 5.9 g/dL (6.4-8.2)
--- NOTE | 2018-01-12 13:35 | ECHRPT ---
Indication: Shortness of breath CONCLUSIONS Normal left ventricular size and wall thickness. The left ventricular systolic function is normal wi th an estimated ejection fraction in the range of 60-65%. Left ventricular diastolic function parameters a re normal. There is trace tricuspid valve regurgitation. The estimated pulmonary arterial pressure is 25.5 mmHg. BP: / HR: Rhythm: Sinus MEASUREMENTS (Male / Female) Normal Values Technical Quality:Good 2D ECHO LV Diastolic Diameter PLAX 4.6 cm 4.2 - 5.9 / 3.9 - 5.3 cm LV Systolic Diameter PLAX 3.3 cm IVS Diastolic Thickness 1.0 cm 0.6 - 1.0 / 0.6 - 0.9 cm LVPW Diastolic Thickness 1.0 cm 0.6 - 1.0 / 0.6 - 0.9 cm LV Relative Wall Thickness 0.4 LVOT Diameter 2.0 cm M-MODE Aortic Root Diameter MM 2.7 cm LA Systolic Diameter MM 2.9 cm LA Ao Ratio MM 1.1 AV Cusp Separation MM 2.2 cm DOPPLER AV Peak Velocity 140.0 cm/s AV Peak Gradient 7.8 mmHg LVOT Peak Velocity 105.0 cm/s LVOT Peak Gradient 4.4 mmHg AV Area Cont Eq pk 2.4 cm Mitral E Point Velocity 83.9 cm/s Mitral A Point Velocity 88.4 cm/s Mitral E to A Ratio 0.9 LV E' Lateral Velocity 7.8 cm/s Mitral E to LV E' Lateral Ratio 10.8 LV E' Septal Velocity 6.9 cm/s Mitral E to LV E' Septal Ratio 12.1 TR Peak Velocity 197.0 cm/s TR Peak Gradient 15.5 mmHg Right Atrial Pressure 10.0 mmHg Pulmonary Artery Systolic Pressu 25.5 mmHg Right Ventricular Systolic Press 25.5 mmHg PV Peak Velocity 119.0 cm/s PV Peak Gradient 5.7 mmHg FINDINGS LEFT VENTRICLE Normal left ventricular size and wall thickness. The left ventricular systolic function is normal wi th an estimated ejection fraction in the range of 60-65%. Left ventricular diastolic function parameters a re normal. RIGHT VENTRICLE Normal right ventricular size and systolic function. LEFT ATRIUM The left atrial size is normal. RIGHT ATRIUM The right atrial size is normal. ATRIAL SEPTUM Normal atrial septal thickness without atrial level shunting by limited color doppler interrogation. AORTA The aortic root and proximal ascending aorta are normal in size on limited imaging. MITRAL VALVE Structurally normal mitral valve. No mitral valve stenosis or regurgitation. AORTIC VALVE Trileaflet aortic valve. No aortic valve stenosis or regurgitation. TRICUSPID VALVE There is trace tricuspid valve regurgitation. The estimated pulmonary arterial pressure is 25.5 mmHg. PULMONARY VALVE No pulmonary valve regurgitation or stenosis. VESSELS The inferior vena cava is normal in size. PERICARDIUM No pericardial effusion. Edmund Ugalde MD, FACC, [facility] [place] (Electronically Signed) Final Date:12 January 2018 13:34
--- NOTE | 2018-01-12 14:03 | ECG ---
Date Performed: 01/11/2018 Time Performed: 19:10:54 PTAGE: 77 years EKG: Sinus rhythm WITH FIRST DEGREE AV BLOCK LOW QRS VOLTAGE IN PRECORDIAL LEADS NONSPECIFIC T-WAVE ABNORMALITY ABNORM AL ECG Compared to PREVIOUS TRACING , no longer tachycardic PREVIOUS TRACIN01/11/2018 16.00 DOCTOR: Catie Powers Interpretating Date/Time 01/12/2018 14:02:46
--- NOTE | 2018-01-12 14:12 | ECG ---
Date Performed: 01/11/2018 Time Performed: 16:00:47 PTAGE: 77 years EKG: SINUS TACHYCARDIA LOW QRS VOLTAGE IN PRECORDIAL LEADS NONSPECIFIC T-WAVE ABNORMALITY ABNORM AL RHYTHM ECG Since the PREVIOUS TRACING , no significant change noted PREVIOUS TRACIN01/11/2018 12.33 DOCTOR: Catie Powers Interpretating Date/Time 01/12/2018 14:10:18
--- NOTE | 2018-01-12 14:27 | ECG ---
Date Performed: 01/11/2018 Time Performed: 12:33:22 PTAGE: 77 years EKG: SINUS TACHYCARDIA LOW QRS VOLTAGE IN PRECORDIAL LEADS POSSIBLE ANTERIOR MYOCARDIAL INFARCTI ON ABNORMAL RHYTHM ECG Compared to PREVIOUS TRACING , now tachycardiac PREVIOUS TRACIN02/26/2009 15.29 DOCTOR: Catie Powers Interpretating Date/Time 01/12/2018 14:25:51
[2018-01-14 10:33] VITALS: BP 128/64; PULSE 72; RESP 18; TEMP 98.1; O2SAT 96
== END 2018-01-12 10:25 | disposition home or self-care (01) ==
LOC: PH3 12:04 → PHEFT 12:04 → INTOOBSV 14:39 → PHEDA 15:08 → PH3 16:33
PROVIDERS: ADMIT Family Medicine; ATTEND Family Medicine